=== PATIENT | female | born 1950 | race African-American/Black ===

== ENCOUNTER → 2017-07-14 | Outpatient (CLI) | payer OTHER ==
[~2017-07-14] MED LIST: ASPIR 8181 MG PO; BRILINTA90 MG PO; CELEXA40 MG PO; ENALAPRIL-HCTZ1 EACH PO; FOSAMAX 70 MG T70 MG PO; LOVASTATIN 20 M20 MG PO; NEOMYCIN-POLY-7.5 ML OTIC; NITROSTAT0.4 M1 PO; NORVASC10 MG PO; OMEPRAZOLE 20 M20 M1 PO; SIMVASTATIN40 MG PO; SPIRIVA INH
[2017-07-14 12:05] LABS: ABSOLUTE BASOPHILS 0.1 thou/uL (0.0-0.2); ABSOLUTE EOSINOPHILS 0.1 thou/uL (0.0-0.7); ABSOLUTE LYMPHOCYTES 2.6 thou/uL (0.8-5.3); ABSOLUTE MONOCYTES 0.3 thou/uL (0.0-1.2); ABSOLUTE NEUTROPHILS 2.6 thou/uL (1.6-8.1); BASOPHILS 0.9 %; EOSINOPHILS 1.2 %; HEMATOCRIT 38.9 % (37.0-47.0); HEMOGLOBIN 12.4 gm/dL (12.0-15.0); LYMPHOCYTES 46.9 %; MCHC 31.9 g/dL (28.0-37.0); MCV 90.9 fL (80.0-100.0); MONOCYTES 5.4 %; MPV 8.2 fl. (7.2-11.1); NUCLEATED RBCS 0 /100WBC; PLATELET COUNT* 243 thou/uL (150-400); POLYS 45.6 %; RBC 4.28 mil/uL (4.20-5.00); RDW-CV 14.3 % (10.5-14.5); WBC 5.6 thou/uL (4.0-11.0)
== END ==
LOC: M.LAB 11:46
PROVIDERS: Nurse Practitioner Family
DX: R06.09 Other forms of dyspnea (principal); R53.83 Other fatigue

== ENCOUNTER → 2017-07-23 | Outpatient (CLI) | payer OTHER ==
[2017-07-23 12:46] LABS: CREATININE 0.8 mg/dL (0.6-1.3)
== END ==
LOC: M.LAB 12:18 → M.ULTRA 13:00 → M.CRD 07-28 08:00
PROVIDERS: Internal Medicine Cardiovascular Disease
DX: I25.10 Atherosclerotic heart disease of native coronary artery without angina pectoris (principal); M79.604 Pain in right leg; M79.605 Pain in left leg; R20.0 Anesthesia of skin